=== PATIENT | male | born 1985 | race Caucasian/White ===

== ENCOUNTER 2016-05-23 17:52 | Emergency (ER) | payer OTHER ==
[~2016-05-23] VITALS: Ht 193 cm; Wt 75.7 kg
[~2016-05-23 17:52] MED LIST: MOBIC15 MG PO; NAPROSYN500 MG PO
[2016-05-23] MEDS ORDERED: FIORICET 50-301 EACH PO (18:50)
[2016-05-23 19:09] VITALS: BP 151/83
== END 2016-05-23 19:09 | disposition home or self-care (01) ==
LOC: EME 17:52
DX: R51 Headache (principal); G89.29 Other chronic pain
CPT/HCPCS: 99281; 99283